=== PATIENT | male | born 2000 | race Two or more races ===

== ENCOUNTER 2024-09-13 18:50 | Emergency (ER) | payer OTHER ==
[~2024-09-13] VITALS: Ht 152.4 cm; Wt 68.0 kg
[2024-09-13 19:00] VITALS: BP 131/88; O2SAT 99
[2024-09-13] MEDS ORDERED: ONDANSETRON HCL 2 MG/ML VIAL IV ONE (19:30)
[2024-09-13] MEDS ORDERED: MEPERIDINE HCL/PF 50 MG/ML VIAL IM ONE (19:30)
[2024-09-13] MEDS ORDERED: 0.9 % SODIUM CHLORIDE 1,000 ML IV SCH (19:30)
[2024-09-13] MEDS ORDERED: KETOROLAC TROMETHAMINE 30 MG VIAL IV ONE (19:30)
[2024-09-13 19:53] LABS: HEMATOCRIT 41.5 % (39.0-48.0); HEMOGLOBIN 14.5 g/dL (13-16.00); MEAN CELL VOLUME 85.9 fL (80.0-100.00); MEAN CORPUSCULAR HGB CONC 34.9 g/dl (32.0-36.0); PLATELET COUNT 264 K/uL (150-450); RED BLOOD COUNT 4.83 M/uL (4.00-6.00); RED CELL DISTRIBUTION WIDTH 12.4 % (11.5-14.5)
[2024-09-13 20:08] LABS: INR 1.03; PARTIAL THROMBOPLASTIN TIME 26.8 SECONDS (22.0-34.0); PROTHROMBIN TIME 11.2 SECONDS (9.0-11.5)
[2024-09-13 20:19] LABS: ALBUMIN 4.2 gm/dL (3.4-5.0); BILIRUBIN TOTAL 0.3 mg/dL (0.3-1.2); CALCIUM 9.7 mg/dL (8.5-10.1); CREATININE SERUM 0.96 mg/dL (0.70-1.30); GFR 96.23; GLOBULINA 3.7 G/DL (2.4-3.5); POTASSIUM 3.86 mEq/L (3.5-5.1); TOTAL PROTEIN 7.9 gm/dL (6.4-8.2)
[2024-09-13 22:14] LABS: URINE APPEARANCE Clear; URINE BILIRRUBIN Negative (NEGATIVE); URINE BLOOD Large; URINE COLOR Yellow; URINE GLUCOSE Negative (NEGATIVE); URINE KETONE 15 (NEGATIVE); URINE LEUKOCYTE Trace; URINE NITRATE Negative; URINE PROTEIN Trace (NEGATIVE); URINE UROBILINOGEN 0.2 E.U./dl
[2024-09-13 22:18] LABS: URINE BACTERIA 18.8 uL (0.0-1933); URINE EPITHELIAL CELLS 4.1 uL (0.0-38.8); URINE RBC 462.1 uL (0.0-20.8); URINE WBC 15.7 uL (0.0-23.2)
[2024-09-13] MEDS ORDERED: CIPRO500 MG PO (22:37)
[2024-09-13] MEDS ORDERED: KETO10TA2 PO (22:37)
== END 2024-09-13 22:48 | disposition home or self-care (01) ==
LOC: ER 18:52
PROVIDERS: General Practice
DX: N20.1 Calculus of ureter (principal); R10.9 Unspecified abdominal pain; Z88.0 Allergy status to penicillin; Z20.822 Contact with and (suspected) exposure to COVID-19